=== PATIENT | female | born 1960 | race Caucasian/White ===

== ENCOUNTER 2017-10-20 08:41 | Day surgery (SDC) | payer BC ==
[~2017-10-20] VITALS: Ht 154.9 cm; Wt 78.8 kg
[2017-10-20 09:14] VITALS: Ht 154.9 cm; Wt 78.8 kg
[2017-10-20] MEDS ORDERED: METFORMIN DAILY (09:27)
[2017-10-20] MEDS ORDERED: NOVOLIN (09:27)
[2017-10-20] MEDS ORDERED: LISINOPRIL DAILY (09:27)
[2017-10-20] MEDS ORDERED: INSULIN GLARGINE (09:27)
[2017-10-20 09:54] VITALS: BP 180/82; PULSE 62; RESP 31
[2017-10-20] MEDS ORDERED: INSULIN ASPART [NOVOLOG] 3 ML PEN SC ONE (10:00)
[2017-10-20] MEDS ORDERED: PROPOFOL 60 ML ONE (10:29)
--- NOTE | 2017-10-20 10:34 | OPPN ---
Date/Time of Note Date/Time of Note DATE: 10/20/17 TIME: 10:33 Operative Report Preoperative Diagnosis Screening Postoperative Diagnosis Internal hemorrhoids No colon neoplasm was identified Operation/Procedure Performed Colonoscopy Surgeon see signature line school office assistant None Anesthesia: MAC Estimated blood loss: none Transfusion Required none Specimen None Grafts/Implants none Complications none VICTORINO PISANO MD Oct 20, 2017 10:34
[2017-10-20 10:55] VITALS: BP 171/81; PULSE 66; RESP 16
--- NOTE | 2017-10-20 12:45 | GILP ---
DATE OF PROCEDURE: NAME OF PROCEDURE: Colonoscopy. SURGEON: Victorino rosario MD PREOPERATIVE DIAGNOSIS: Screening colonoscopy. POSTOPERATIVE DIAGNOSES 1. Colonoscopy all the way to the cecum. 2. Internal hemorrhoids. 3. No colon neoplasm was identified. INDICATION FOR THE PROCEDURE: Ms. Peri Stephens is a 57-year-old female patient who was scheduled for screening colonoscopy. The procedure and possible complications are well explained to the patient. The patient understood and consented to the procedure. DESCRIPTION OF PROCEDURE: Under the influence of anesthesia, the colonoscope was carefully introduc ed in the rectum and under direct vision it was advanced all the way to the cecum. FINDINGS: The patient had internal hemorrhoids. No colon neoplasm was identified. She tolerated the procedure very well and there was no complication from the procedure. At the end of the procedures, she was awake with stable vital signs and she was discharged home to the care of her family. IMPRESSION: Please see postoperative diagnoses. PLAN: Next screening colonoscopy in 10 years. Dictated By: VICTORINO HUFFMAN/SOLEDAD Conf#: [id number] DID#: [id number]
== END 2017-10-20 16:52 | disposition home or self-care (01) ==
LOC: GIL 08:41
PROVIDERS: ATTEND Internal Medicine Gastroenterology
DX: Z12.11 Encounter for screening for malignant neoplasm of colon (principal); I10 Essential (primary) hypertension; E11.9 Type 2 diabetes mellitus without complications; K64.8 Other hemorrhoids
CPT/HCPCS: 45378; 82962; J1815; Z7610

== ENCOUNTER 2019-03-05 05:29 | Day surgery (SDC) | payer BC ==
--- NOTE | 2019-03-04 12:52 | PREOPHP ---
DATE OF ADMISSION: 03/05/2019 HISTORY OF PRESENT ILLNESS: This 58-year-old patient is admitted for elective cataract surgery of th e left eye. The patient has complained of decreased vision in the left eye for the past years' time without prior history of eye disease or injury. The patient does have a history of insulin-dependent diabetes mellitus for many years, as well as being treated for systemic hypertension. CURRENT MEDICATIONS INCLUDE: 1. Low dose aspirin (discontinued 1 week prior to surgery. 2. Hydrochlorothiazide. 3. Janumet. 4. Lipitor. 5. Losartan. 6. Novolin. ALLERGIES: There are no known allergies to medication. PHYSICAL EXAMINATION: A best corrected visual acuity 20/50 in the right eye and 20/200 in the left e ye. Slit lamp examination reveals trace posterior subcapsular cataract in the right eye and an anter ior cortical and dense posterior subcapsular cataract in the left eye. Applanation tonometry is 15 m mHg. Examination of the retina does not reveal the presence of any diabetic retinopathy. DIAGNOSIS: Cortical and posterior subcapsular cataract, left eye. PLAN: Cataract extraction with lens implant, left eye. The risks and alternatives to the surgery chinchilla ve been discussed with the patient as well as the hope for improvement of visual acuity leading to gr eater ability to perform activities of daily living. The patient understands this and agrees to proc eed with surgery. Dictated By: AFTAB PINZON/SOLEDAD Conf#: [id number] DID#: [id number]
[2019-03-05] VITALS (10 sets, daily range): BP systolic 118–147; BP diastolic 56–79; PULSE 80–84; RESP 16–29; Ht 157.5 cm; Wt 80.2 kg
[~2019-03-05] VITALS: Ht 157.5 cm; Wt 80.2 kg
[~2019-03-05 05:29] MED LIST: INSULIN GLARGINE; LISINOPRIL DAILY; METFORMIN DAILY; NOVOLIN
[2019-03-05] MEDS ORDERED: MOXIFLOXACIN 0.5% 3 ML OPH OPER SCH (06:00)
[2019-03-05] MEDS ORDERED: SOD CHLORIDE 0.9% 1,000 ML IV SCH (06:00)
[2019-03-05] MEDS ORDERED: DICLOFENAC 0.1% 2.5 ML OPH OPER SCH (06:00)
[2019-03-05] MEDS ORDERED: TROPICAMIDE 1% 15 ML OPH OPER SCH (06:00)
[2019-03-05] MEDS ORDERED: CYCLOPENTOLATE/PHENYLEPH 2 ML OPH OPER SCH (06:00)
[2019-03-05] MEDS ORDERED: HYDR12.58 PO (06:47)
[2019-03-05] MEDS ORDERED: INSU100I33 SC (06:47)
[2019-03-05] MEDS ORDERED: ASPI-817 PO (06:47)
[2019-03-05] MEDS ORDERED: NOVO3I SC (06:47)
[2019-03-05] MEDS ORDERED: LOSA50TA14 PO (06:47)
[2019-03-05] MEDS ORDERED: CARBACHOL 0.01% 1.5 ML OPH INJ ONE (06:48)
[2019-03-05] MEDS ORDERED: LIDOCAINE 4% (MPF) 5 ML INJ ONE (06:48)
[2019-03-05] MEDS ORDERED: TETRACAINE 0.5% 4 ML OPH ONE (06:48)
[2019-03-05] MEDS ORDERED: CEFAZOLIN 1 GM INJ ONE (06:48)
[2019-03-05] MEDS ORDERED: GENTAMICIN 80 MG INJ ONE (06:49)
[2019-03-05] MEDS ORDERED: DEXAMETHASONE 4 MG/ML 1 ML INJ ONE (06:49)
[2019-03-05] MEDS ORDERED: EPINEPHrine 1 MG INJ ONE (06:49)
--- NOTE | 2019-03-05 07:00 | PREAC ---
Date/Time of Note Date/Time of Note DATE: 03/05/19 TIME: 06:58 Anesthesia Eval and Record Evaluation Time Pre-Procedure Interview DATE: 03/05/19 TIME: 06:58 Age 58 Sex female NPO: 8 hrs Preoperative diagnosis left cataract Planned procedure left eye CEIOL implant Past Medical History Past Medical History: Includes Cardio: HTN, Dyslipidemia Endo: Diabetes Surgery & Anesthesia Issues No known issue Meds Anticoagulation: No Beta Jeyson within 24 hr: No Reason Beta Jeyson not given: Pt. not on B-Jeyson Reported Medications Losartan Potassium* (Losartan Potassium*) 50 Mg Tablet, 50 MG PO DAILY, TAB 03/05/19 Hydrochlorothiazide* (Hydrochlorothiazide*) 12.5 Mg Tablet, 12.5 MG PO DAILY, #30 TAB 03/05/19 Aspirin* (Aspirin* EC) 81 Mg Tablet.dr, 81 MG PO DAILY, TAB 03/05/19 Insulin Aspart* (Novolog Insulin Pen*) 100 Unit/Ml Soln, 5 UNIT SC TIDM A, EA 03/05/19 Insulin Glargine,Hum.rec.anlog (Basaglar Kwikpen U-100) 100 Unit/1 Ml Ins uln.pen, 10 UNIT SC QHS, EA 03/05/19 [Lantus 50 Daily] No Conflict Check 10/20/17 [Novolin 5U Daily] No Conflict Check 10/20/17 [Lisinopril Daily] No Conflict Check 10/20/17 [Metformin Daily] No Conflict Check 10/20/17 Current Medications Diclofenac Sodium (Voltaren 0.1%) 1 drop Q5 MIN X 3 OPER Last administered on 03/05/19at 06:18; Admin Dose 1 DROP; Start 03/05/19 at 06:00 Tropicamide (Mydriacyl 1%) 1 drop Q5 MIN X3 OPER Last administered on 03/05/19at 06:15; Admin Dose 1 DROP; Start 03/05/19 at 06:00 Moxifloxacin HCl (Vigamox) 1 drop Q5 MIN X 3 OPER Last administered on 03/05/19at 06:16; Admin Dose 1 DROP; Start 03/05/19 at 06:00 Cyclopentolate/ Phenylephrine (Cyclomydril Oph 2 ml) 1 drop Q5 MIN X 3 OPER Last administered on 03/05/19at 06:13; Admin Dose 1 DROP; Start 03/05/19 at 06:00 Sodium Chloride 1,000 ml @ 25 mls/hr Q24H IV Last administered on 03/05/19at 06:19; Admin Dose 25 MLS/HR; Start 03/05/19 at 06:00 Meds reviewed: Yes Allergies Coded Allergies: No Known Drug Allergies (Verified Allergy, Unknown, 03/05/19) Allergies Reviewed: Yes Labs/Studies Labs Reviewed: Reviewed by anesthesiologist test: N/A Studies: ECG, CXR Pre-procedure Exam Last vitals Vital Signs Date Temp Pulse Resp B/P (MAP) Pulse Ox O2 O2 Flow FiO2 Time Delivery Rate 03/05/19 96.4 80 16 147/79 97 Room Air 06:34 (101) Airway: Adequate mouth opening, Adequate thyromental dist Mallampati: Mallampati II Teeth: Normal Lung: Normal Heart: Normal ASA Physical Status ASA physical status: 2 Emergency: None Planned Anesthetic General/MAC: MAC Planned Pain Management Parenteral pain med, Local by surgeon Pre-operative Attestations Prior to commencing anesthesia and surgery, the patient was re-evaluated, there was verification of: *The patient's identity *The results of appropriate recent lab work and preoperative vital signs *The above evaluation not changing prior to induction *Anesthetic plan, risk benefits, alternative and complications discussed with patient/family; questions answered; patient/family understands, accepts and wishes to proceed. LAUREL BURGESS Mar 05, 2019 06:59
[2019-03-05] MEDS ORDERED: FENTAnyl 50 MCG/ML VIAL ONE (07:05)
[2019-03-05] MEDS ORDERED: PROPOFOL 20 ML ONE (07:05)
[2019-03-05] MEDS ORDERED: ATOR40TA68 PO (07:16)
[2019-03-05] MEDS ORDERED: SITA1TAB5 PO (07:16)
[2019-03-05] MEDS ORDERED: LABETALOL HCL 20MG INJ ONE (07:49)
[2019-03-05] MEDS ORDERED: MIDAZOLAM 1 MG/ML 2 ML INJ ONE (07:50)
[2019-03-05] MEDS ORDERED: BALANCED SALT SOLN 500 ML OPH IRRIG ONE (07:52)
[2019-03-05] MEDS ORDERED: OXYCODONE/ACETAMINOPHEN (5/325) TAB PO PRN ×2 (08:00)
[2019-03-05] MEDS ORDERED: hydrALAzine 20 MG INJ IV PRN (08:00)
[2019-03-05] MEDS ORDERED: ONDANSETRON 4 MG INJ IV PRN (08:00)
[2019-03-05] MEDS ORDERED: LABETALOL HCL 20MG INJ IV PRN (08:00)
[2019-03-05] MEDS ORDERED: FENTAnyl 50 MCG/ML VIAL IV PRN ×3 (08:00)
--- NOTE | 2019-03-05 08:15 | SIPON ---
Date/Time of Note Date/Time of Note DATE: 03/05/19 TIME: 08:14 Operative Report Preoperative Diagnosis Posterior subcapsular cataract os Postoperative Diagnosis same Operation/Procedure Performed cataract extraction with lens implant os Surgeon aftab gonzalez construction project assistant none Anesthesia: MAC Estimated blood loss: none Transfusion Required none Specimen none Grafts/Implants posterior chamber intraocular lens Complications none AFTAB GONZALEZ MD Mar 05, 2019 08:15
[2019-03-05] MEDS ORDERED: NA HYALURONATE/CHONDROITIN 0.5 ML SYG ONE (08:16)
--- NOTE | 2019-03-05 08:55 | PAC ---
Date/Time of Note Date/Time of Note DATE: 03/05/19 TIME: 08:55 Post-Anesthesia Notes Post-Anesthesia Note Last documented vital signs Vital Signs Date Temp Pulse Resp B/P (MAP) Pulse Ox O2 O2 Flow FiO2 Time Delivery Rate 03/05/19 98.3 08:49 03/05/19 80 20 120/61 96 Room Air 08:31 (80) Activity: WNL Respiratory function: WNL Cardiovascular function: WNL Mental status: Baseline Pain reasonably controlled: Yes Hydration appropriate: Yes Nausea/Vomiting absent: Yes LAUREL BURGESS Mar 05, 2019 08:55
--- NOTE | 2019-03-05 12:28 | OPR ---
DATE OF OPERATION: 03/05/2019 PREOPERATIVE DIAGNOSIS: Posterior subcapsular cataract. POSTOPERATIVE DIAGNOSIS: Posterior subcapsular cataract. OPERATION PERFORMED: Cataract extraction with lens implant, left eye. SURGEON: Aftab Rodriguez MD ANESTHESIA: Jack Stewart CRNA. PREOPERATIVE DIAGNOSIS: Cataract, left eye. POSTOPERATIVE DIAGNOSIS: Cataract, left eye. SURGEON: Aftab Rodriguez MD OPERATION: Phacoemulsification with posterior chamber intraocular lens implant, left eye. PROCEDURE: The patient was brought to the operating room and placed on the table with an IV in place and the patient attached to an quality assurance monitor chassis. Oxygen was given via face mask. After some intravenous sedation was administered, local anesthesia was given using Xylocaine 2% with epinephrine, mixed with Marcaine 0.5%. This was given in a lid block and retrobulbar injection. The p atient was then prepped and draped in the usual sterile manner. A wire lid speculum was inserted between the lids of the left eye. A Superblade was used to enter the anterior chamber at the corneoscleral limbus at the 10:30 o'clock position. A separate incision was made using a 3.0-mm keratome which entered the corneoscleral junction at the 12 o'clock position. Thr ough this 3-mm opening, an irrigating cystotome was introduced into the anterior chamber. The chamber was filled with Viscoat and an anterior capsulotomy was performed. Balanced salt solution was then u sed for hydrodissection of the lens. A phacoemulsification handpiece was then brought into the field and introduced into the anterior chamber. The lens nucleus was emulsified using a deep groove and cr acking the nucleus into quadrants. Following this, each quadrant was aspirated and emulsified at the pupillary margin. After this was completed, the irrigation/aspiration handpiece was brought to the field, introduced in to the posterior chamber, and the lens cortical material was removed. When this was completed, additi onal Viscoat was injected into the anterior and posterior chambers. The 3-mm opening had its internal lips enlarged, and then the posterior chamber intraocular lens humberto uring 19.5 diopters ([employer] Model LI61AO) was then injected into the posterior c hamber using the lens injector system. After the leading haptic was introduced into the capsular bag and the lens optic was present in the center of the eye, the injector was removed and the trailing chinchilla ptic was grasped with non-toothed forceps and introduced into the capsular fold superiorly. A Sinskey hook was then used to rotate the intraocular lens so that the lips were oriented in the horizontal m eridian. One 10-0 nylon suture was placed across the wound. Prior to tying, the irrigation/aspiration handpiece was reintroduced into the anterior chamber to rem ove the Viscoat. Miochol was instilled to constrict the pupil, and then the 10-0 nylon suture was tie d. The ends were cut short and then the knot was buried. Then, 0.5 mL of dexamethasone and 0.5 mL of Ancef were injected into the sub-Tenon space in the infer ior fornix. Ciloxan drops were then placed on the surface of the eye. The speculum was removed and a patch was applied. The patient then left the operating room in satisfactory condition. Dictated By: AFTAB PINZON/SOLEDAD Conf#: [id number] DID#: [id number]
== END 2019-03-05 09:45 | disposition home or self-care (01) ==
LOC: SDS 05:29
PROVIDERS: ATTEND Ophthalmology
DX: H25.042 Posterior subcapsular polar age-related cataract, left eye (principal); E11.9 Type 2 diabetes mellitus without complications; I10 Essential (primary) hypertension; Z79.82 Long term (current) use of aspirin; Z79.84 Long term (current) use of oral hypoglycemic drugs; Z79.4 Long term (current) use of insulin
CPT/HCPCS: 66984; 82962; J0171; J0690; J1100; J1580; J2250; J3010; V2632; Z7512; Z7610

== ENCOUNTER 2019-04-23 06:50 | Day surgery (SDC) | payer BC ==
--- NOTE | 2019-04-22 14:52 | PREOPHP ---
DATE OF ADMISSION: 04/23/2019 HISTORY OF PRESENT ILLNESS: This 58-year-old patient is admitted for elective cataract surgery of th e right eye. The patient previously underwent cataract surgery on the left eye 2 months prior with e xcellent visual recovery. The patient has a history of insulin-dependent diabetes mellitus for many years as well as being treated for systemic hypertension. CURRENT MEDICATIONS: Include: 1. Low dose aspirin, which was discontinued 1 week prior to surgery. 2. Basaglar. 3. Hydrochlorothiazide. 4. Janumet. 5. Losartan. 6. Novolin insulin. ALLERGIES: THE THERE ARE NO KNOWN ALLERGIES. PHYSICAL EXAMINATION: The visual acuity with correction is 20/70 in the right eye and 20/40 in the l eft eye. Slit lamp examination reveals posterior subcapsular cataract in the right eye and a posteri or chamber intraocular lens in the left eye. Applanation tonometry is 15 mmHg in the right eye. The re is a posterior chamber intraocular lens in appropriate position in the left eye. Examination of t he retina does not reveal the presence of any diabetic retinopathy. DIAGNOSIS: Posterior subcapsular cataract, right eye. PLAN: Cataract extraction with lens implant, right eye. The risks and alternatives to the surgery h ave been discussed with the patient as well as the hope for improvement of visual acuity leading to g reater ability to perform activities of daily living. The patient understands this and agrees to pro ceed with surgery. Dictated By: AFTAB PINZON/SOLEDAD Conf#: [id number] DID#: [id number]
[2019-04-23] VITALS (8 sets, daily range): BP systolic 117–139; BP diastolic 63–78; PULSE 70–80; RESP 13–18; Ht 152.4 cm; Wt 79.7 kg
[~2019-04-23] VITALS: Ht 152.4 cm; Wt 79.7 kg
[~2019-04-23 06:50] MED LIST changes: +ASPI-817 PO; +ATOR40TA68 PO; +HYDR12.58 PO; +INSU100I33 SC; -INSULIN GLARGINE; -LISINOPRIL DAILY; +LOSA50TA14 PO; -METFORMIN DAILY; +NOVO3I SC; -NOVOLIN; +SITA1TAB5 PO
[2019-04-23] MEDS ORDERED: MOXIFLOXACIN 0.5% 3 ML OPH OPER SCH (07:00)
[2019-04-23] MEDS ORDERED: SOD CHLORIDE 0.9% 1,000 ML IV SCH (07:00)
[2019-04-23] MEDS ORDERED: DICLOFENAC 0.1% 2.5 ML OPH OPER SCH (07:00)
[2019-04-23] MEDS ORDERED: CYCLOPENTOLATE/PHENYLEPH 2 ML OPH OPER SCH (07:00)
[2019-04-23] MEDS ORDERED: TROPICAMIDE 1% 15 ML OPH OPER SCH (07:00)
[2019-04-23] MEDS ORDERED: DEXAMETHASONE 4 MG/ML 1 ML INJ ONE (08:19)
[2019-04-23] MEDS ORDERED: CEFAZOLIN 1 GM INJ ONE (08:19)
[2019-04-23] MEDS ORDERED: NA HYALURONATE/CHONDROITIN 0.5 ML SYG ONE (08:19)
[2019-04-23] MEDS ORDERED: CARBACHOL 0.01% 1.5 ML OPH INJ ONE (08:19)
[2019-04-23] MEDS ORDERED: LIDOCAINE 4% (MPF) 5 ML INJ ONE (08:19)
[2019-04-23] MEDS ORDERED: LIDOCAINE 2% (SDV) 5 ML INJ ONE (08:20)
[2019-04-23] MEDS ORDERED: PROPOFOL 200 MG INJ ONE (08:20)
--- NOTE | 2019-04-23 08:33 | PREAC ---
Date/Time of Note Date/Time of Note DATE: 04/23/19 TIME: 08:31 Anesthesia Eval and Record Evaluation Time Pre-Procedure Interview DATE: 04/23/19 TIME: 08:31 Age 58 Sex female NPO: 8 hrs Preoperative diagnosis Rt eye cataract Planned procedure Rt eye CE IOL implant Past Medical History Past Medical History: Includes Cardio: HTN, Dyslipidemia Endo: Diabetes GI: Morbid obesity Surgery & Anesthesia Issues No known issue Meds Anticoagulation: Yes Beta Jeyson within 24 hr: No Reason Beta Jeyson not given: Pt. not on B-Jeyson Reported Medications Atorvastatin* (Atorvastatin*) 40 Mg Tablet, 40 MG PO QHS, #30 TAB 03/05/19 Sitagliptin Phos/Metformin HCl (Janumet 50-1,000 mg Tablet) 1 Each Tablet, 1 EACH PO DAILY, TAB 03/05/19 Losartan Potassium* (Losartan Potassium*) 50 Mg Tablet, 50 MG PO DAILY, TAB 03/05/19 Hydrochlorothiazide* (Hydrochlorothiazide*) 12.5 Mg Tablet, 12.5 MG PO DAILY, #30 TAB 03/05/19 Aspirin* (Aspirin* EC) 81 Mg Tablet.dr, 81 MG PO DAILY, TAB 03/05/19 Insulin Aspart* (Novolog Insulin Pen*) 100 Unit/Ml Soln, 5 UNIT SC TIDM A, EA 03/05/19 Insulin Glargine,Hum.rec.anlog (Basaglar Kwikpen U-100) 100 Unit/1 Ml Insuln.pen, 10 UNIT SC QHS, EA 03/05/19 Current Medications Diclofenac Sodium (Voltaren 0.1%) 1 drop Q5 MIN X 3 OPER Last administered on 04/23/19at 07:43; Admin Dose 1 DROP; Start 04/23/19 at 07:00 Tropicamide (Mydriacyl 1%) 1 drop Q5 MIN X3 OPER Last administered on 04/23/19at 07:43; Admin Dose 1 DROP; Start 04/23/19 at 07:00 Moxifloxacin HCl (Vigamox) 1 drop Q5 MIN X 3 OPER Last administered on 04/23/19at 07:43; Admin Dose 1 DROP; Start 04/23/19 at 07:00 Cyclopentolate/ Phenylephrine (Cyclomydril Oph 2 ml) 1 drop Q5 MIN X 3 OPER Last administered on 04/23/19at 07:42; Admin Dose 1 DROP; Start 04/23/19 at 07:00 Sodium Chloride 1,000 ml @ 25 mls/hr Q24H IV Last administered on 04/23/19at 07:43; Admin Dose 25 MLS/HR; Start 04/23/19 at 07:00 Meds reviewed: Yes Allergies Coded Allergies: No Known Drug Allergies (Verified Allergy, Unknown, 04/23/19) Allergies Reviewed: Yes Labs/Studies Labs Reviewed: Reviewed by anesthesiologist test: N/A Studies: ECG Pre-procedure Exam Last vitals Vital Signs Date Temp Pulse Resp B/P (MAP) Pulse Ox O2 O2 Flow FiO2 Time Delivery Rate 04/23/19 98.0 77 16 139/67 98 Room Air 06:55 (91) Airway: Adequate mouth opening, Adequate thyromental dist Mallampati: Mallampati II Teeth: Normal Lung: Normal Heart: Normal ASA Physical Status ASA physical status: 3 Emergency: None Planned Anesthetic General/MAC: MAC Planned Pain Management Single shot nerve block, Parenteral pain med Pre-operative Attestations Prior to commencing anesthesia and surgery, the patient was re-evaluated, there was verification of: *The patient's identity *The results of appropriate recent lab work and preoperative vital signs *The above evaluation not changing prior to induction *Anesthetic plan, risk benefits, alternative and complications discussed with patient/family; questions answered; patient/family understands, accepts and wishes to proceed. CORI MOHAN MD Apr 23, 2019 08:33
[2019-04-23] MEDS ORDERED: MIDAZOLAM 1 MG/ML 2 ML INJ ONE (08:35)
[2019-04-23] MEDS ORDERED: FENTAnyl 50 MCG/ML VIAL ONE (08:35)
--- NOTE | 2019-04-23 09:25 | SIPON ---
Date/Time of Note Date/Time of Note DATE: 04/23/19 TIME: 09:23 Operative Report Preoperative Diagnosis cortical and nuclear sclerotic cataract od Postoperative Diagnosis same Operation/Procedure Performed cataract extraction with lens implant od Surgeon aftab gonzalez tutoring assistant none Anesthesia: MAC Estimated blood loss: none Transfusion Required none Specimen none Grafts/Implants posterior chamber lens implant Complications none AFTAB GONZALEZ MD Apr 23, 2019 09:25
--- NOTE | 2019-04-23 09:27 | PAC ---
Date/Time of Note Date/Time of Note DATE: 04/23/19 TIME: 09:26 Post-Anesthesia Notes Post-Anesthesia Note Last documented vital signs Vital Signs Date Temp Pulse Resp B/P (MAP) Pulse Ox O2 O2 Flow FiO2 Time Delivery Rate 04/23/19 98.0 77 16 139/67 98 Room Air 06:55 (91) Activity: WNL Respiratory function: WNL Cardiovascular function: WNL Mental status: Baseline Pain reasonably controlled: Yes Hydration appropriate: Yes Nausea/Vomiting absent: Yes Comments BP:134/67, P:78, Spo2:100%, T:98,8 CORI MOHAN MD Apr 23, 2019 09:27
[2019-04-23] MEDS ORDERED: MEPERIDINE 25 MG INJ IV PRN (09:30)
[2019-04-23] MEDS ORDERED: LABETALOL HCL 20MG INJ IV PRN (09:30)
[2019-04-23] MEDS ORDERED: METOCLOPRAMIDE 10 MG INJ IV PRN (09:30)
[2019-04-23] MEDS ORDERED: ONDANSETRON 4 MG INJ IV PRN (09:30)
[2019-04-23] MEDS ORDERED: DIPHENHYDRAMINE 50 MG INJ IV PRN (09:30)
[2019-04-23] MEDS ORDERED: FENTAnyl 50 MCG/ML VIAL IV PRN (09:30)
[2019-04-23] MEDS ORDERED: HYDROmorphONE 1 MG/5 ML IV SYRINGE IV PRN ×2 (09:30)
--- NOTE | 2019-04-23 10:22 | OPR ---
DATE OF OPERATION: 04/23/2019 PREOPERATIVE DIAGNOSES: Nuclear sclerotic, core and cortical cataract, right eye. POSTOPERATIVE DIAGNOSIS: Nuclear sclerotic, core and cortical cataract, right eye. OPERATION PERFORMED: Cataract extraction with lens implant, right eye. SURGEON: Aftab Gonzalez M.D. ANESTHESIA: Local standby. PROCEDURE: The patient was brought to the operating room and placed on the table with an IV in place and the patient attached to an case monitor. Oxygen was given via face mask. After some intravenous sedation was administered, local anesthesia was given using Xylocaine 2% with epinephrine, mixed with Marcaine 0.5%. This was given in a lid block and retrobulbar injection. The patient was then prepped and draped in the usual sterile manner. A wire lid speculum was inserted between the lids of the right eye. A Superblade was used to enter the anterior chamber at the corneoscleral limbus at the 10:30 o'clock position. A separate incision was made using a 3.0-mm keratome which entered the corneoscleral junction at the 12 o'clock position. Through this 3-mm opening, an irrigating cystotome was introduced into the anterior chamber. The chamber was filled with Viscoat and an anterior capsulotomy was performed. Balanced salt solution was then used for hydrodissection of the lens. A phacoemulsification handpiece was then brought into the field and introduced into the anterior chamber. The lens nucleus was emulsified using a deep groove and cracking the nucleus into quadrants. Following this, each quadrant was aspirated and emulsified at the pupillary margin. After this was completed, the irrigation/aspiration handpiece was brought to the field, introduced into the posterior chamber, and the lens cortical material was removed. When this was completed, additional Viscoat was injected into the anterior and posterior chambers. As an attempt was being made to remove the sub- incisional cortex using bimanual technique of the lens. The posterior lens capsule tore and some formed vitreous presented at the wound. A limited anterior vitrectomy was performed until no vitreous was present and sufficient capsular support was noted to be present. The 3-mm opening had its internal lips enlarged, and then the posterior chamber intraocular lens measuring 19.0 diopters ([employer] Model LI61AO) was then injected into the posterior chamber using the lens injector system. After the leading haptic was introduced into the capsular bag and the lens optic was present in the center of the eye, the injector was removed and the trailing haptic was grasped with non-toothed forceps and introduced into the capsular fold superiorly. A Sinskey hook was then used to rotate the intraocular lens so that the lips were oriented in the horizontal meridian. One 10-0 nylon suture was placed across the wound. Prior to tying, the irrigation/aspiration handpiece was reintroduced into the anterior chamber to remove the Viscoat. Miochol was instilled to constrict the pupil, and then the 10-0 nylon suture was tied. The ends were cut short and then the knot was buried. Then, 0.5 mL of dexamethasone and 0.5 mL of Ancef were injected into the sub- Tenon space in the inferior fornix. Ciloxan drops were then placed on the surface of the eye. The speculum was removed and a patch was applied. The patient then left the operating room in satisfactory condition. Dictated By: AFTAB PINZON/SOLEDAD Conf#: [id number] DID#: [id number] CC: AFTAB GONZALEZ MD;*EndCC* MTDD
== END 2019-04-23 11:31 | disposition home or self-care (01) ==
LOC: SDS 06:50
PROVIDERS: ATTEND Ophthalmology
DX: H25.11 Age-related nuclear cataract, right eye (principal); E11.9 Type 2 diabetes mellitus without complications; I10 Essential (primary) hypertension; E78.5 Hyperlipidemia, unspecified; Z79.82 Long term (current) use of aspirin; Z79.4 Long term (current) use of insulin
CPT/HCPCS: 66984; 82962; 93005; J0690; J1100; J2250; J3010; V2632; Z7512; Z7610